=== PATIENT | male | born 1975 | race Caucasian/White ===

== ENCOUNTER 2023-01-06 16:08 | Emergency (ER) | payer SELFPAY ==
[~2023-01-06] VITALS: Ht 165.1 cm; Wt 93.4 kg
[2023-01-06 16:32] VITALS: BP 142/87
--- NOTE | 2023-01-06 16:36 | ED Integumentary General ---
General Chief Complaint: Skin/Wound Problems Stated Complaint: LEFT FOOT PAIN Nursing Triage Note: PT AMB TO [facility] WITH CC OF WOUND BLEEDING ON LEFT ANKLE. PT STATED THAT HE WAS PUTTING HIS SOCK ON AND RIPED THE SCAB OFF APPPOX. 1 HR AGO. Source: patient Exam Limitations: no limitations History of Present Illness Date Seen by Provider: Jan 06, 2023 Time Seen by Provider: 16:24 Initial Comments 47-year-old male presents to the ER for a bleeding wound. He states that approximately 1 hour ago, he was putting his socks on which caused a scab on his left lateral ankle to come off. He reports significant bleeding, states that the scab is over a vein on his leg and the blood was shooting up. Patient does not take any blood thinners. Allergies and Home Medications Allergies Coded Allergies: No Known Drug Allergies (Unverified , 01/06/23) Patient Home Medication List Home Medication List Reviewed: Yes Review of Systems Review of Systems Constitutional: see HPI Skin: see HPI Past Rhbxyer-Uulesg-Jadngo Hx Patient Social History Tobacco Use?: No Substance use?: No Alcohol Use?: No Past Medical History Surgery/Hospitalization HX: HERNIA REPAIR Physical Exam Vital Signs Vital Signs - First Documented 01/06/23 16:20 Pulse 68 B/P (MAP) 142/87 (105) Pulse Ox 96 O2 Delivery Room Air Capillary Refill : General Appearance: WD/WN, no apparent distress Neck: supple, normal inspection Cardiovascular: regular rate, rhythm Respiratory: lungs clear, normal breath sounds, no respiratory distress, no accessory muscle use Extremities: normal range of motion Neurologic/Psychiatric: alert, normal mood/affect Skin: normal color, warm/dry Skin Problem Location: lower extremities Skin Problem Character: other (Wound to left lateral ankle no bleeding at this time) Progress/Results/Core Measures Results/Orders Vital Signs/I&O 01/06/23 01/06/23 16:20 16:32 Pulse 68 68 B/P (MAP) 142/87 (105) 142/87 Pulse Ox 96 96 O2 Delivery Room Air Room Air Blood Pressure Mean: 105 Progress Progress Note : Progress Note Patient seen and evaluated, resting comfortably in bed, no acute distress. Wound noted to left lateral ankle, bleeding has stopped at this time. Pressure dressing applied to prevent further bleeding. Patient instructed to keep the bandage in place until tomorrow morning. Discharge instructions and return precautions provided. Departure Impression Primary Impression: Wound disruption Disposition: 01 HOME, SELF-CARE Condition: Stable Departure-Patient Inst. Decision time for Depature: 16:35 Referrals: NO,LOCAL PHYSICIAN (PCP/Family) Primary Care Physician Patient Instructions: Wound Care (DC) Add. Discharge Instructions: Keep the bandage in place until tomorrow morning. You may loosen it if your foot feels numb or tingly. Return for any new, concerning, or worsening symptoms. All discharge instructions reviewed with patient and/or family. Voiced understanding. HIEN JACOBS APRN Jan 06, 2023 16:36
== END 2023-01-06 16:39 | disposition home or self-care (01) ==
LOC: ER 16:11
DX: T81.30XA Disruption of wound, unspecified, initial encounter (principal)